=== PATIENT | female | born 1985 | race African-American/Black ===

== ENCOUNTER 2017-01-26 09:00 | Emergency (ER) | payer OTHER ==
[~2017-01-26] VITALS: Wt 70.5 kg
[~2017-01-26 09:00] MED LIST: ALBU18HF INHALATION; AZIT250T94 PO; BACTDS PO; CEPH-443 PO; IBUP800T25 PO; PRED20TA PO
[2017-01-26] MEDS ORDERED: ACETAMINOPHEN 500 MG TAB PO STA (09:39)
[2017-01-26] MEDS ORDERED: IBUP-1542 PO (09:45)
--- NOTE | 2017-01-26 09:52 | ERD ---
ER Documentation Chief Complaint Date/Time DATE: 01/26/17 TIME: 09:47 Chief Complaint sore throat, fever HPI 31-year-old female complaining of fever since yesterday. Patient stated that she had a sore throat for the last 3 days, and able to swallow. She took ibuprofen at home for fever, she did not take any medication this morning. She also reports headache. Denies cough or runny nose. Denies abdominal pain, nausea, vomiting, or diarrhea. ROS All systems reviewed and are negative except as per history of present illness. Medications Home Meds Active Scripts Ibuprofen* (Motrin*) 600 Mg Tab, 600 MG PO Q6H Y for PAIN AND OR ELEVATED TEMP, #30 TAB Prov:AMANDA NUNN NP 01/26/17 Ibuprofen* (Motrin*) 800 Mg Tab, 800 MG PO Q8 Y for PAIN AND OR ELEVATED TEMP, # 30 TAB Prov:AMANDA NUNN NP 07/19/16 Sulfamethoxazole-Trimethoprim* (Bactrim* DS) 800-160 Mg Tab, 1 TAB PO BID for 7 Days, TAB Prov:AMANDA NUNN NP 07/19/16 Cephalexin* (Keflex*) 500 Mg Capsule, 500 MG PO QID for 7 Days, CAP Prov:AMANDA NUNN NP 07/19/16 Albuterol Sulfate* (Ventolin HFA*) 18 Gm Hfa.aer.ad, 2 PUFF INHALATION Q4H for 7 Days, INHALER Prov:CORAL TRINIDAD MD 10/25/15 Prednisone* (Prednisone*) 20 Mg Tab, 40 MG PO DAILY for 4 Days, TAB Prov:CORAL TRINIDAD MD 10/25/15 Azithromycin* (Zithromax*) 250 Mg Tablet, 250 MG PO .ZPACK DIRECTED, #6 TAB TAKE 500 MG (2 TABS) THE FIRST DAY THEN 250 MG (1 TAB) DAYS 2-5 Prov:CORAL TRINIDAD MD 10/25/15 Allergies Allergies: Coded Allergies: No Known Allergy (Unverified , 02/10/15) PMhx/Soc Medical and Surgical Hx: pt denies Medical Hx History of Surgery: No Anesthesia Reaction: No Hx Neurological Disorder: No Hx Respiratory Disorders: No Hx Cardiac Disorders: No Hx Psychiatric Problems: No Hx Miscellaneous Medical Probl: No Hx Alcohol Use: No Hx Substance Use: No Hx Tobacco Use: No Physical Exam Vitals Vital Signs Date Time Temp Pulse Resp B/P Pulse Ox O2 Delivery O2 Flow Rate FiO2 01/26/17 09:06 103.2 122 20 129/62 99 Physical Exam General impression: Well-developed, well-nourished. Alert, oriented, in no acute distress Head: Normocephalic, atraumatic. Eyes: PERRL, EOM normal. Sclerae are normal. Conjunctiva not injected. ENT: External canals patent. TM'sclear. Nasal mucosa and oral mucosa are normal. Oropharynx erythematous, no pharyngeal or tonsillar swelling or exudate. Neck: Supple, nontender. No lymphadenopathy. No nuchal rigidity. Respiration: Normal respiratory effort. Lungs clear to auscultate bilaterally. No wheezes, rales or rhonchi. Cardiovascular: Regular rate and rhythm. No murmurs or extra heart sounds. Abdomen: Abdomen normal to inspection. Nontender. No masses or organomegaly. Bowel sounds normal. Neuro: Mental status normal, speech normal. [employer] grossly intact. Skin: Normal turgor. No rash or lesions. Psych: Normal mood and affect. Results 24 hrs Current Medications Medications (Trade) Dose Ordered Sig/Flavio Route PRN Reason Start Time Stop Time Status Last Admin Dose Admin Acetaminophen (Tylenol Tab) 1,000 mg ONCE STAT PO 01/26/17 09:39 01/26/17 09:41 DC Ibuprofen (Motrin) 600 mg ONCE ONCE PO 01/26/17 10:00 01/26/17 10:01 Penicillin G Benzathine (Bicillin La) 1,200,000 units ONCE ONCE IM 01/26/17 10:00 01/26/17 10:01 Procedures/MDM 31-year-old female presented to ED with fever, sore throat, and headache. Her history is highly suspicious of strep pharyngitis. However, she does not have any tonsillar swelling or exudates. I will go ahead to treat her for presumed strep pharyngitis with penicillin GB IM injection in the ED. Tylenol and ibuprofen also given to the patient in the ED for fever reduction. Low suspicion for peritonsillar or retropharyngeal abscess. Low suspicion for mastoiditis. Patient appears well, stable for discharge and outpatient management. Medical decision making shared with patient and family. Education provided to patient and family. Patient and family expressed understanding of the plan. Medications on discharge: Ibuprofen. Follow-up: Primary care provider in 2-3 days or return to ED if worse. Departure Diagnosis: Primary Impression: Pharyngitis Pharyngitis/tonsillitis etiology: unspecified etiology Qualified Code: J02.9 - Pharyngitis, unspecified etiology Condition: Stable Patient Instructions: Pharyngitis, Strep (Presumed) Additional Instructions: Call your primary care doctor TOMORROW for an appointment during the next 2-3 days.See the doctor sooner or return here if your condition worsens before your appointment time. AMANDA NUNN NP Jan 26, 2017 09:52
[2017-01-26] MEDS ORDERED: IBUPROFEN 600 MG TAB PO ONE (10:00)
[2017-01-26] MEDS ORDERED: PENICILLIN G BENZ 1.2 MIL UNIT SYG IM ONE (10:00)
== END 2017-01-26 09:45 | disposition home or self-care (01) ==
LOC: FTE 09:00
DX: J02.9 Acute pharyngitis, unspecified (principal)
CPT/HCPCS: 96372; J0561; Z7502; Z7610

== ENCOUNTER 2017-05-16 08:49 | Emergency (ER) | payer OTHER ==
[~2017-05-16] VITALS: Ht 162.6 cm; Wt 76.0 kg
[~2017-05-16 08:49] MED LIST changes: +IBUP-1542 PO
[2017-05-16 08:55] VITALS: Ht 162.6 cm; Wt 76.0 kg
--- NOTE | 2017-05-16 09:29 | ERD ---
ER Documentation Chief Complaint Date/Time DATE: 05/16/17 TIME: 09:27 Chief Complaint Pt with intermittent sharp CP since Am and urine frequency X 2 days. HPI This a 31-year-old female who presents the emergency department today complaining of sharp stabbing chest pain that started this morning.. Patient states that she has also had urinary frequency for the past couple of days when she urinates she feels like she has to go but only urinates a small amount.. States that she was on her way to go to the doctor to evaluate for urinary tract infection when she bent over to pull something out of a drawer and had chest pain. States that she has had intermittent cough recently but denies any shortness of breath. Denies any fevers or chills. Denies any back pain. ROS All systems reviewed and are negative except as per history of present illness. Medications Home Meds Active Scripts Phenazopyridine Hcl* (Pyridium*) 200 Mg Tab, 200 MG PO TID Y for URINARY PAIN, # 6 TAB Prov:MATHEUS GALICIA PA-C 05/16/17 Naproxen* (Naprosyn*) 500 Mg Tablet, 500 MG PO BID, #30 TAB Prov:MATHEUS GALICIA PA-C 05/16/17 Hydrocodone/Acetaminophen ([place] 5-325 Tablet) 1 Each Tablet, 1 TAB PO Q6H Y for PAIN, #10 TAB Prov:MATHEUS GALICIA PA-C 05/16/17 Ibuprofen* (Motrin*) 600 Mg Tab, 600 MG PO Q6H Y for PAIN AND OR ELEVATED TEMP, #30 TAB Prov:AMANDA NUNN NP 01/26/17 Ibuprofen* (Motrin*) 800 Mg Tab, 800 MG PO Q8 Y for PAIN AND OR ELEVATED TEMP, # 30 TAB Prov:AMANDA NUNN NP 07/19/16 Sulfamethoxazole-Trimethoprim* (Bactrim* DS) 800-160 Mg Tab, 1 TAB PO BID for 7 Days, TAB Prov:AMANDA NUNN NP 07/19/16 Cephalexin* (Keflex*) 500 Mg Capsule, 500 MG PO QID for 7 Days, CAP Prov:AMANDA NUNN NP 07/19/16 Albuterol Sulfate* (Ventolin HFA*) 18 Gm Hfa.aer.ad, 2 PUFF INHALATION Q4H for 7 Days, INHALER Prov:CORAL TRINIDAD MD 10/25/15 Prednisone* (Prednisone*) 20 Mg Tab, 40 MG PO DAILY for 4 Days, TAB Prov:CORAL TRINIDAD MD 10/25/15 Azithromycin* (Zithromax*) 250 Mg Tablet, 250 MG PO .ZPACK DIRECTED, #6 TAB TAKE 500 MG (2 TABS) THE FIRST DAY THEN 250 MG (1 TAB) DAYS 2-5 Prov:CORAL TRINIDAD MD 10/25/15 Allergies Allergies: Coded Allergies: No Known Allergy (Unverified , 02/10/15) PMhx/Soc Medical and Surgical Hx: pt denies Medical Hx, pt denies Surgical Hx History of Surgery: No Anesthesia Reaction: No Hx Neurological Disorder: No Hx Respiratory Disorders: No Hx Cardiac Disorders: No Hx Psychiatric Problems: No Hx Miscellaneous Medical Probl: No Hx Alcohol Use: No Hx Substance Use: No Hx Tobacco Use: No Physical Exam Vitals Vital Signs Date Time Temp Pulse Resp B/P Pulse Ox O2 Delivery O2 Flow Rate FiO2 05/16/17 08:55 98.3 79 18 122/70 98 Physical Exam Const: No acute distress, talkative Head: Atraumatic Eyes: Normal Conjunctiva ENT: Normal External Ears, Nose and Mouth. Neck: Full range of motion..~ No meningismus. Resp: Clear to auscultation bilaterally. No absent breath sounds. No wheezing. Tenderness to palpation substernal area and pain with trunk rotation to the left Cardio: Regular rate and rhythm, no murmurs Abd: Soft, non tender, non distended. Normal bowel sounds Skin: No petechiae or rashes Back: No midline or flank tenderness Ext: No cyanosis, or edema Neur: Awake and alert Psych: Normal Mood and Affect Results 24 hrs Laboratory Tests Test 05/16/17 10:06 05/16/17 10:33 Bedside Urine pH (LAB) 5.5 Bedside Urine Protein (LAB) Negative Bedside Urine Glucose (UA) Negative Bedside Urine Ketones (LAB) Negative Bedside Urine Blood 3+ Bedside Urine Nitrite (LAB) Negative Bedside Urine Leukocyte Esterase (L Negative Bedside Glucose 102mg/dL Current Medications Medications (Trade) Dose Ordered Sig/Flavio Route PRN Reason Start Time Stop Time Status Last Admin Dose Admin Ibuprofen (Motrin) 800 mg ONCE ONCE PO 05/16/17 09:30 05/16/17 09:31 DC 05/16/17 09:51 DIAGNOSTIC IMAGING REPORT Patient: RAYNA CHILDRESS : 1985 Age: 31 Sex: F MR #: [id number] DOS: 05/16/17 0000 Ordering MD: MATHEUS GALICIA PA-C Location: [facility] Room/Bed: PROCEDURE: XR Chest. CLINICAL INDICATION: Chest pain, cough TECHNIQUE: A single AP view of the chest was obtained. COMPARISON: Chest x-ray dated 10/25/2015 FINDINGS: No focal airspace opacification, pleural effusion or pneumothorax is seen. The cardiomediastinal silhouette is within normal limits for size. The osseous structures are unremarkable. IMPRESSION: No radiographic evidence of acute cardiopulmonary disease. No significant interval change. RPTAT: HH .Peg Anthony MD, MD Date Time Electronically viewed and signed by .Peg Anthony MD, MD on 05/16/2017 09 :52 .G/ CC: MATHEUS GALICIA PA-C Procedures/MDM This a 31-year-old female who presents the emergency department today complaining of sharp chest pain that started this morning and urinary frequency for the past 2 days. UA is negative for infection. There is 3+ blood. Patient is afebrile and otherwise well-appearing. She has no back pain. She has no CVA tenderness. Low suspicion for pyelonephritis. Given patient's hematuria she may have kidney stones and I have explained this to her. She is expected to start her menstrual cycle in 3 days. UA was sent for culture Given patient's complaint of urinary frequency I did do an Accu-Chek Accu-Chek 102. Low suspicion for hyperglycemia as cause of urinary frequency EKG read and interpreted by Dr. Solorio: Rate [address] elevation. No QT prolongation. Normal sinus rhythm. Low suspicion for acute CO, PE, pericarditis Chest x-ray shows no radiographic evidence of acute cardiopulmonary disease. There is no significant interval change. There is no focal airspace opacification pleural effusion or pneumothorax. Given the patient's pain is reproducible with movement and tender to palpation likely costochondritis. Low suspicion for pneumonia, PE, abscess, pleural effusion, pneumothorax Patient presented to the emergency department today with multiple complaints pacifically, chest pain and dysuria. Patient has chest pain of uncertain etiology however likely costochondritis. Patient also has dysuria and hematuria of uncertain etiology. Patient was given Motrin here in the emergency department. She will be given a prescription for short course of [place] and Naprosyn for home. I will also give her a prescription for Pyridium. At this time the patient is stable for discharge and outpatient management. Patient should follow up with their PCP in the next 1-2 days. They may return to the emergency department sooner for any persistent or worsening of symptoms. Patient understood and agreed with the plan. Departure Diagnosis: Primary Impression: Multiple complaints Condition: Fair MATHEUS GALICIA PA-C May 16, 2017 09:29
[2017-05-16] MEDS ORDERED: IBUPROFEN 800 MG TAB PO ONE (09:30)
--- NOTE | 2017-05-16 09:52 | RADRPT ---
PROCEDURE: XR Chest. CLINICAL INDICATION: Chest pain, cough TECHNIQUE: A single AP view of the chest was obtained. COMPARISON: Chest x-ray dated 10/25/2015 FINDINGS: No focal airspace opacification, pleural effusion or pneumothorax is seen. The cardiomediastinal si lhouette is within normal limits for size. The osseous structures are unremarkable. IMPRESSION: No radiographic evidence of acute cardiopulmonary disease. No significant interval change. RPTAT: HH .Peg Anthony MD, MD Date Time Electronically viewed and signed by .Peg Anthony MD, on 05/16/2017 09:52 .G/
[2017-05-16 10:00] LABS: URINE BLOOD (Dip) POC 3+ (NEGATIVE)
[2017-05-16] MEDS ORDERED: HYDR-906 PO (10:38)
[2017-05-16] MEDS ORDERED: NAPR-260 PO (10:38)
[2017-05-16] MEDS ORDERED: PHEN-538 PO (10:39)
== END 2017-05-16 10:58 | disposition home or self-care (01) ==
LOC: FTE 08:49
DX: R07.9 Chest pain, unspecified (principal)
CPT/HCPCS: 71010; 81003; 82962; 93005; Z7502; Z7610

== ENCOUNTER 2018-05-10 16:24 | Emergency (ER) | END 2018-05-10 17:19 | disposition home or self-care (01) ==

== ENCOUNTER 2018-09-02 21:44 | Emergency (ER) | END 2018-09-03 00:36 | disposition home or self-care (01) ==